=== PATIENT | female | born 1995 | race Caucasian/White ===

== ENCOUNTER 2019-10-08 10:18 | Emergency (ER) | payer MEDICAID ==
[~2019-10-08] VITALS: Ht 167.6 cm; Wt 81.8 kg
--- NOTE | 2019-10-08 10:44 | NUR ---
norma draper rn walk pt over.
--- NOTE | 2019-10-08 11:30 | NUR ---
Pt recieved in ED overflow. Vital sign taken and within normal limits. Pt changed into green scrubs and belongings catologed with patient and collected. Belongings placed in locked locker in ambulance bay. Pt in no signs of distress and resting comfortably.
[2019-10-08 11:33] VITALS: BP 130/86
[2019-10-08 11:54] LABS: URINE HCG NEGATIVE (NEG)
[2019-10-08 11:55] LABS: BASOPHILS % (AUTO) 0.5 % (0-1); EOSINOPHILS # (AUTO) 0.1 X10'3 (0-0.9); EOSINOPHILS % (AUTO) 1.5 % (0-6); HEMATOCRIT 38.3 % (35.0-45.0); HEMOGLOBIN 12.8 g/dl (12.0-16.0); LYMPHOCYTES # (AUTO) 1.6 X10'3 (1.1-4.8); LYMPHOCYTES % (AUTO) 34.7 % (21-51); MEAN CORPUSCULAR HEMOGLOBIN 28.8 PG (27.0-31.0); MEAN CORPUSCULAR HGB CONC 33.3 g/dL (33.0-36.5); MEAN CORPUSCULAR VOLUME 86.2 FL (78-98); MEAN PLATELET VOLUME 7.6 FL (7.4-10.4); MONOCYTES # (AUTO) 0.4 X10'3 (0-0.9); MONOCYTES % (AUTO) 8.2 % (2-12); NEUTROPHILS # (AUTO) 2.5 X10'3 (1.8-7.7); NEUTROPHILS % (AUTO) 55.1 % (42-75); PLATELET COUNT 344 X10'3 (140-440); RED BLOOD COUNT 4.44 X10'6 (4.20-5.60); RED CELL DISTRIBUTION WIDTH 15.9 % (11.5-14.5); WHITE BLOOD COUNT 4.6 X10'3 (4.5-11.0)
[2019-10-08 11:58] LABS: CLARITY,URINE SLIGHTLY CLOUDY (Clear); COLOR,URINE YELLOW (Yellow); GLUCOSE, URINE NEGATIVE (Neg); KETONES,URINE NEGATIVE (Neg); LEUKOCYTE ESTERASE ,URINE TRACE (Neg); NITRITES, URINE NEGATIVE (Neg); OCCULT BLOOD,URINE LARGE (Neg); PROTEIN,URINE NEGATIVE (Neg); UROBILINOGEN,URINE 0.2 E.U/dL (0.2-1.0)
[2019-10-08 11:59] LABS: UA COLLECTION TYPE CLN CATCH MIDSTREAM; URINE AMPHETAMINE SCREEN NEGATIVE (Neg); URINE BARBITUATE SCREEN NEGATIVE (Neg); URINE BENZODIAZEPINES SCREEN NEGATIVE (Neg); URINE CANNABINOID SCREEN NEGATIVE (Neg); URINE COCAINE SCREEN NEGATIVE (Neg); URINE METHADONE SCREEN NEGATIVE (Neg); URINE OPIATE SCREEN NEGATIVE (Neg); URINE PHENCYCLIDINE SCREEN NEGATIVE (Neg)
[2019-10-08 12:04] LABS: MUCUS STRANDS MANY /LPF (Neg)
[2019-10-08 12:05] LABS: SQUAMOUS EPITHELIAL CELL,UR MANY /LPF (FEW)
[2019-10-08 12:09] LABS: ALANINE AMINOTRANSFERASE 24 U/L (12-78); ALBUMIN 3.6 G/DL (3.4-5.0); ALBUMIN/GLOBULIN RATIO 1.2 (1.1-1.5); ALKALINE PHOSPHATASE 80 IU/L (46-116); ANION GAP 9 (8-16); ASPARTATE AMINO TRANSFERASE 12 U/L (10-37); BILIRUBIN,TOTAL 0.5 MG/DL (0.1-1.0); BLOOD UREA NITROGEN 11 MG/DL (7-18); CALCIUM 8.7 MG/DL (8.5-10.1); CHLORIDE 108 MMOL/L (99-107); CREATININE 0.61 MG/DL (0.40-0.90); GLUCOSE 87 MG/DL (70-104); SODIUM 141 MMOL/L (135-145); TOTAL CARBON DIOXIDE 24.1 MMOL/L (24-32); TOTAL PROTEIN 6.7 G/DL (6.4-8.2); eGFR > 90 ML/MIN
[2019-10-08 12:10] LABS: BACTERIA,URINE 1+ /HPF (Neg); TRANSITIONAL EPI CELLS,URINE MODERATE /HPF
[2019-10-08 12:17] LABS: ETHANOL < 0.010 GM/DL (0.0-0.010)
--- NOTE | 2019-10-08 12:40 | NUR ---
Patient resting, with no signs of distress, no needs at this time, will continue to monitor.
--- NOTE | 2019-10-08 13:41 | NUR ---
Psych eval Evaluated patient per request of ED RN. Reports severe depression, suicidal thoughts "sometimes", not currently. Had a baby seven months ago, has a long history of depression but this has gotten worse since she had her child. She is on lexapro which she does not feel is helpful. Has been on zoloft which was also not helpful. Has never seen a psychiatrist. Reports she is interested in a psychiatrist and therapist. This marketing copywriter gave her a referral for [facility] and recommended that she call this afternoon but if they don't answer to call first thing in the morning because sometimes they answer the phone better earlier in the AM. Pt is not currently DTS, let Dr. West know that referrals had been given to patient.
--- NOTE | 2019-10-08 13:42 | NUR ---
ROSHAN FROM [facility] CAME DOWN TO SPOKE WITH PT REGARDING HER PPD REQUESTED BY DR VEGA. ROSHAN CONSULTED WITH DR VEGA AND PT WILL BE UP FOR DISCHARGE.
== END 2019-10-08 14:23 | disposition home or self-care (01) ==
LOC: ER 10:19
DX: I10 Essential (primary) hypertension (principal); F32.9 Major depressive disorder, single episode, unspecified
CPT/HCPCS: 36415; 80053; 80305; 80320; 81001; 81025; 84443; 84484; 85025; 93005; 99284